=== PATIENT | male | born 1965 | race Caucasian/White ===

== ENCOUNTER 2017-11-11 17:00 | Inpatient (IN) | payer OTHER ==
[~2017-11-11] VITALS: Ht 182.9 cm; Wt 104.4 kg
[2017-11-11 17:44] LABS: HEMATOCRIT 52.6 % (38.0-50.0); HEMOGLOBIN 17.4 G/DL (12.5-16.6); MCH 29.6 PG (29.0-34.0); MCHC 33.1 G/DL (30.0-36.0); MCV 89.6 FL (86-99); PLATELET COUNT 344 K/uL (156-360); RBC DIS.WIDTH-CV 13.2 % (11.8-14.6); RBC DIS.WIDTH-SD 43.3 % (39-53); RED BLOOD COUNT 5.87 M/uL (4.00-5.50); WHITE BLOOD COUNT 11.1 K/uL (4.1-10.2)
[2017-11-11 17:52] LABS: ALBUMIN 4.9 g/dL (3.2-4.8)
[2017-11-11 17:53] LABS: CHLORIDE 106 mEq/L (99-109); SODIUM 141 mEq/L (136-147)
[2017-11-11 17:55] LABS: GLUCOSE 120 mg/dL (70-99); TOTAL PROTEIN 7.7 g/dL (6.4-8.3)
[2017-11-11 17:57] LABS: TOTAL BILIRUBIN 0.9 mg/dL (0.0-1.0)
[2017-11-11 17:58] LABS: ALKALINE PHOSPHATASE 42 IU/L (3-129)
[2017-11-11 17:59] LABS: CREATININE 1.4 mg/dL (0.6-1.3); GFR ESTIMATE (CALCULATED) 57 mL/min/ (58.99-99999)
[2017-11-11 18:00] LABS: AST (GOT) 21 IU/L (2-34); UREA NITROGEN (BUN) 18 mg/dL (9-23)
[2017-11-11 18:01] LABS: ALT (GPT) 21 IU/L (3-49)
[2017-11-11 18:29] LABS: DIRECT BILIRUBIN 0.3 mg/dL (0.0-0.3); LIPASE 30 U/L (1.0-51.0)
[2017-11-11 18:35] LABS: TROP-I INTERPRETATION NEGATIVE; TROPONIN-I < 0.01 ng/mL (0.0-0.30)
[2017-11-11 18:49] LABS: AMYLASE 76 IU/L (1-118)
[2017-11-11] MEDS ORDERED: ONE DAILY1 EAC3 PO (21:26)
[2017-11-11] MEDS ORDERED: PRAVACHOL40 MG PO (21:26)
[2017-11-11] MEDS ORDERED: FENOFIBRATE160 M1 PO (21:26)
[2017-11-11] MEDS ORDERED: ROXICODONE5 MG PO (21:26)
[2017-11-11] MEDS ORDERED: PEPTO BISMOL262 MG PO (21:27)
[2017-11-11] MEDS ORDERED: TUMS500 MG PO (21:27)
[2017-11-12] VITALS (8 sets, daily range): BP systolic 101–142; BP diastolic 58–78
[2017-11-12 06:03] LABS: HEMATOCRIT 46.6 % (38.0-50.0); MCH 29.1 PG (29.0-34.0); MCHC 32.2 G/DL (30.0-36.0); MCV 90.5 FL (86-99); PLATELET COUNT 302 K/uL (156-360); RBC DIS.WIDTH-CV 13.2 % (11.8-14.6); RBC DIS.WIDTH-SD 44.6 % (39-53); RED BLOOD COUNT 5.15 M/uL (4.00-5.50); WHITE BLOOD COUNT 6.1 K/uL (4.1-10.2)
[2017-11-12 06:32] LABS: CHLORIDE 107 MEQ/L (99-109); CREATININE 1.3 MG/DL (0.6-1.3); GFR ESTIMATE (CALCULATED) > 59 mL/min/ (58.99-99999); GLUCOSE 177 mg/dL (70-99); SODIUM 139 MEQ/L (136-147); UREA NITROGEN (BUN) 15 mg/dL (9-23)
[2017-11-12 21:16] LABS: APPEARANCE CLEAR ((CLEAR)); BILIRUBIN NEGATIVE; BLOOD NEGATIVE; COLOR YELLOW ((YELLOW)); GLUCOSE (STRIP) NEGATIVE; KETONES NEGATIVE; LEUKOCYTES NEGATIVE; NITRITE NEGATIVE; PROTEIN (STRIP) NEGATIVE; SPECIFIC GRAVITY 1.011 (1.000-1.030); UCUL ADDED? NO; UROBILINOGEN 0.2 MG/DL (0.2-1.0)
[2017-11-13 03:44] VITALS: BP 112/71
[2017-11-13 06:29] LABS: HEMATOCRIT 42.6 % (38.0-50.0); HEMOGLOBIN 13.9 G/DL (12.5-16.6); MCH 29.1 PG (29.0-34.0); MCHC 32.6 G/DL (30.0-36.0); MCV 89.1 FL (86-99); PLATELET COUNT 271 K/uL (156-360); RBC DIS.WIDTH-CV 13.2 % (11.8-14.6); RBC DIS.WIDTH-SD 43.8 % (39-53); RED BLOOD COUNT 4.78 M/uL (4.00-5.50); WHITE BLOOD COUNT 4.9 K/uL (4.1-10.2)
[2017-11-13 07:11] LABS: CHLORIDE 105 MEQ/L (99-109); CREATININE 1.3 MG/DL (0.6-1.3); GFR ESTIMATE (CALCULATED) > 59 mL/min/ (58.99-99999); POTASSIUM 3.6 MEQ/L (3.7-5.4); SODIUM 137 MEQ/L (136-147); UREA NITROGEN (BUN) 10 mg/dL (9-23)
[2017-11-13 07:20] LABS: GLUCOSE 109 mg/dL (70-99)
[2017-11-13 07:22] VITALS: BP 122/71
[2017-11-13 11:54] VITALS: BP 123/74
[2017-11-13 15:40] VITALS: BP 120/77
[2017-11-13 19:57] VITALS: BP 121/74
[2017-11-13 23:05] VITALS: BP 125/79
[2017-11-14 04:38] VITALS: BP 118/72
[2017-11-14 07:19] LABS: HEMATOCRIT 43.7 % (38.0-50.0); HEMOGLOBIN 14.3 G/DL (12.5-16.6); MCH 28.9 PG (29.0-34.0); MCHC 32.7 G/DL (30.0-36.0); MCV 88.5 FL (86-99); PLATELET COUNT 275 K/uL (156-360); RBC DIS.WIDTH-CV 12.9 % (11.8-14.6); RBC DIS.WIDTH-SD 41.8 % (39-53); RED BLOOD COUNT 4.94 M/uL (4.00-5.50); WHITE BLOOD COUNT 6.3 K/uL (4.1-10.2)
[2017-11-14 07:54] LABS: CHLORIDE 104 MEQ/L (99-109); CREATININE 1.1 MG/DL (0.6-1.3); GFR ESTIMATE (CALCULATED) > 59 mL/min/ (58.99-99999); GLUCOSE 111 mg/dL (70-99); SODIUM 136 MEQ/L (136-147); UREA NITROGEN (BUN) 9 mg/dL (9-23)
[2017-11-14 08:16] VITALS: BP 117/71
[2017-11-14] MEDS ORDERED: HYDROCODON-ACE1 EAC7 PO (09:31)
[2017-11-14] MEDS ORDERED: CHLORZOXAZONE500 MG PO (09:31)
[2017-11-14 12:04] VITALS: BP 124/82
[2017-11-14 15:54] VITALS: BP 117/72
== END 2017-11-14 17:34 | disposition home or self-care (01) | DRG 337 ==
LOC: EME 17:00 → ENRESERV 22:21 → SDC 22:26 → EME 22:26 → ENRESERV 22:34 → 3EAST 11-12 01:35
PROVIDERS: Surgery
DX: K56.50 Intestinal adhesions [bands], unspecified as to partial versus complete obstruction (principal); E78.5 Hyperlipidemia, unspecified; K21.9 Gastro-esophageal reflux disease without esophagitis; E86.0 Dehydration; K43.2 Incisional hernia without obstruction or gangrene; K66.0 Peritoneal adhesions (postprocedural) (postinfection); Z90.49 Acquired absence of other specified parts of digestive tract; K40.90 Unilateral inguinal hernia, without obstruction or gangrene, not specified as recurrent; E78.00 Pure hypercholesterolemia, unspecified; D18.00 Hemangioma unspecified site; F41.9 Anxiety disorder, unspecified; Z82.49 Family history of ischemic heart disease and other diseases of the circulatory system
CPT/HCPCS: 71045; 74177; 80048; 80053; 81003; 82150; 82248; 83690; 84484; 85027; 93005; 99281; 99285; J0131; J1170; J1650; J2175; J2250; J2270; J2405; J3010; J7030; J7120; S0028; S0074

== ENCOUNTER → 2018-03-25 | Outpatient (CLI) | payer OTHER ==
[~2018-03-25] MED LIST: CHLORZOXAZONE500 MG PO; FENOFIBRATE160 M1 PO; HYDROCODON-ACE1 EAC7 PO; ONE DAILY1 EAC3 PO; PEPTO BISMOL262 MG PO; PRAVACHOL40 MG PO; ROXICODONE5 MG PO; TUMS500 MG PO; ZYRTEC10 M3 PO
[2018-03-25 08:42] LABS: HEMATOCRIT 45.8 % (38.0-50.0); HEMOGLOBIN 15.1 G/DL (12.5-16.6); MCH 29.7 PG (29.0-34.0); PLATELET COUNT 284 K/uL (156-360); RBC DIS.WIDTH-CV 13.5 % (11.8-14.6); RBC DIS.WIDTH-SD 44.2 % (39-53); RED BLOOD COUNT 5.09 M/uL (4.00-5.50); WHITE BLOOD COUNT 4.9 K/uL (4.1-10.2)
[2018-03-25 08:49] LABS: PTT 30.9 SEC (25-37)
== END | disposition home or self-care (01) ==
LOC: OPR 07:45 → EDSTATUS 08:00
PROVIDERS: Neurological Surgery
PROC: 0RB Upper Joints, Excision (ICD-10-PCS; principal; 2018-03-25)
DX: D18.09 Hemangioma of other sites (principal)
CPT/HCPCS: 71045; 77012; 85027; 85610; 85730; 88305; J3010